=== PATIENT | male | born 1955 | race Caucasian/White ===

== ENCOUNTER 2017-12-03 22:20 | Inpatient (IN) | payer OTHER ==
[~2017-12-03] VITALS: Ht 170.2 cm; Wt 77.3 kg
[2017-12-03] MEDS ORDERED: MORPHINE SULFATE 4 MG/ML CPJ (NOT FOR IM USE) IV STA (22:24)
[2017-12-03] MEDS ORDERED: SODIUM CHLORIDE 0.9% 1,000 ML IV ONE (22:24)
[2017-12-03] MEDS ORDERED: ONDANSETRON HCL 4MG/2ML VIAL IV STA (22:24)
[2017-12-03] MEDS ORDERED: DILTIAZEM HCL 5MG/ML 5ML VIAL IV PRN (22:30)
[2017-12-03] MEDS ORDERED: DILTIAZEM HCL 5MG/ML 5ML VIAL IV ONE ×2 (22:30→22:45)
[2017-12-03] MEDS ORDERED: DILTIAZEM HCL 125 MG in DEXT 5% WATER 100 ML IV ONE (22:30)
[2017-12-03] MEDS ORDERED: ASPIRIN 81MG TABLET PO ONE (22:30)
[2017-12-03] MEDS ORDERED: LORAZEPAM 2MG/ML CPJ IV ONE (22:45)
[2017-12-03 23:23] LABS: BASOPHILS % 0.6 % (0.0-2.0); EOSINOPHILS % 2.1 % (0.0-5.0); HEMATOCRIT. 42.1 % (42.0-52.0); HEMOGLOBIN. 14.3 g/dL (14.0-18.0); LYMPHOCYTES % 20.1 % (20.0-50.0); MEAN CORPUSCULAR HEMOGLOBIN 30.9 pg (28.0-32.0); MEAN CORPUSCULAR VOLUME 90.6 fL (80.0-94.0); MEAN PLATELET VOLUME 8.2 fl (7.4-10.4); NEUTROPHILS % 71.2 % (40.0-76.0); PLATELET 159 x1000/uL (130-400); RED BLOOD CELL COUNT 4.64 mill/uL (4.7-6.1); RED CELL DISTRIBUTION WIDTH 14.2 % (11.6-14.6)
[2017-12-03 23:32] LABS: INR 1.1; PROTHROMBIN TIME 11.1 sec (9.4-11.6)
[2017-12-03 23:41] LABS: CHLORIDE 107 mEq/L (98-107); ETHANOL BLOOD < 10 mg/dL; TROPONIN I 0.04 ng/mL (0.00-0.04)
[2017-12-04] VITALS (7 sets, daily range): BP systolic 116–127; BP diastolic 72–85
[2017-12-04] MEDS ORDERED: DOCUSATE SODIUM 100MG CAPSULE PO PRN
[2017-12-04] MEDS ORDERED: POTASSIUM BICARB/CIT ACID 25 MEQ TABLET.EFF PO NR
[2017-12-04] MEDS ORDERED: GUAIFENESIN 200MG/10ML SUGAR FREE UDC PO PRN
[2017-12-04] MEDS ORDERED: ACETAMINOPHEN 650MG SUPP PR PRN
[2017-12-04] MEDS ORDERED: DIPHENHYDRAMINE 50MG/ML VIAL IV PRN
[2017-12-04] MEDS ORDERED: HYDROCODONE/ACETAMINOPHEN 5/325MG TABLET PO PRN
[2017-12-04] MEDS ORDERED: MAGNESIUM/ALUMINUM HYDROXIDE/SIMETHICONE 30ML UDC PO PRN
[2017-12-04] MEDS ORDERED: AMIODARONE HCL 200 MG TABLET PO SCH
[2017-12-04] MEDS ORDERED: ACETAMINOPHEN 325MG TABLET PO PRN
[2017-12-04] MEDS ORDERED: ACETAMINOPHEN 650MG/20.3ML UDC GT PRN
[2017-12-04] MEDS ORDERED: CLONIDINE 0.1MG TABLET PO PRN
[2017-12-04] MEDS ORDERED: IPRATROPIUM/ALBUTEROL 0.5-3(2.5)MG/3ML NEB INH PRN
[2017-12-04] MEDS ORDERED: ONDANSETRON HCL 4MG/2ML VIAL IV PRN
[2017-12-04] MEDS ORDERED: NA PHOS,M-B/NA PHOS,DI-BA ENEMA 118ML PR PRN
[2017-12-04] MEDS ORDERED: SODIUM CHLORIDE 0.9% 500 ML IV ONE (01:19)
[2017-12-04] MEDS ORDERED: ALBUMIN HUMAN 25GM/100ML (25%) IV NR (02:15)
[2017-12-04] MEDS ORDERED: NOREPINEPHRINE 4 MG in DEXT 5% WATER 246 ML IV ONE ×4 (02:30)
[2017-12-04] MEDS ORDERED: POTASSIUM CHLORIDE 20MEQ TABLET SR PO ONE (02:30)
[2017-12-04 02:35] LABS: BASOPHILS % 0.4 % (0.0-2.0); EOSINOPHILS % 1.4 % (0.0-5.0); HEMATOCRIT. 41.3 % (42.0-52.0); HEMOGLOBIN. 14.2 g/dL (14.0-18.0); MEAN CORPUSCULAR HEMOGLOBIN 31.1 pg (28.0-32.0); MEAN CORPUSCULAR VOLUME 90.6 fL (80.0-94.0); MEAN PLATELET VOLUME 8.5 fl (7.4-10.4); NEUTROPHILS % 72.2 % (40.0-76.0); PLATELET 152 x1000/uL (130-400); RED BLOOD CELL COUNT 4.55 mill/uL (4.7-6.1); RED CELL DISTRIBUTION WIDTH 14.1 % (11.6-14.6)
[2017-12-04 07:35] LABS: BASOPHILS % 0.5 % (0.0-2.0); EOSINOPHILS % 2.5 % (0.0-5.0); HEMOGLOBIN. 12.3 g/dL (14.0-18.0); MEAN CORPUSCULAR HEMOGLOBIN 30.2 pg (28.0-32.0); MEAN CORPUSCULAR VOLUME 90.4 fL (80.0-94.0); MEAN PLATELET VOLUME 8.5 fl (7.4-10.4); MONOCYTES % 7.6 % (2.0-8.0); NEUTROPHILS % 54.4 % (40.0-76.0); PLATELET 143 x1000/uL (130-400); RED BLOOD CELL COUNT 4.09 mill/uL (4.7-6.1); RED CELL DISTRIBUTION WIDTH 14.4 % (11.6-14.6)
[2017-12-04 07:56] LABS: TROPONIN I 0.63 ng/mL (0.00-0.04)
[2017-12-04 07:57] LABS: CHLORIDE 112 mEq/L (98-107); HDL CHOLESTEROL 31 mg/dL (40-59); LDL CHOLESTEROL 96 mg/dL (5-100)
[2017-12-04] MEDS ORDERED: ASPIRIN 81MG TABLET PO SCH (10:45)
[2017-12-04] MEDS ORDERED: REGADENOSON 0.4 MG/5 ML IV ONE (12:15)
[2017-12-04] MEDS: SODIUM CHLORIDE 0.9% INJ 3ML FLUSH IVF SCH ×2 (14:00→21:26)
[2017-12-04] MEDS: BENAZEPRIL 5MG TABLET PO SCH (14:38)
[2017-12-04] MEDS: ASPIRIN 81MG TABLET PO SCH (14:38)
[2017-12-04] MEDS: CITALOPRAM HYDROBROMIDE 40MG TABLET PO SCH (14:39)
[2017-12-04 15:09] LABS: BG BASE EXCESS -2.6 mmol/L (-2.0-2.0); BG CARBOXYHEMOGLOBIN 1.7 % (0.5-1.5); BG DEOXYHEMOGLOBIN 13.6 % (0.0-5.0); BG HCO3 ACT 24.1 mmol/L (22.0-26.0); BG METHEMOGLOBIN 0.3 % (0.0-1.5); BG OXYGEN SATURATION 86.1 % (92.0-98.5); BG OXYHEMOGLOBIN 84.4 % (94.0-97.0); BG PCO2 48.2 mmHg (35.0-45.0); BG PH 7.316 (7.350-7.450); BG PO2 53.2 mmHg (75.0-100.0); BG SAMPLE SITE RIGHT RADIAL; BG TOTAL HEMOGLOBIN 15.8 g/dL (12.0-18.0); BG VENT MODE NASAL CANNULA
[2017-12-04] MEDS ORDERED: FUROSEMIDE 40MG/4ML VIAL IVP NR (15:15)
[2017-12-04 15:39] LABS: CREATINE KINASE MB FRACTION 4.9 ng/mL (0.5-3.6); TROPONIN I 0.28 ng/mL (0.00-0.04)
[2017-12-04] MEDS ORDERED: NICOTINE 21MG PATCH TD NR (18:30)
[2017-12-04] MEDS ORDERED: IOHEXOL-350 100 ML BOTTLE ONE (20:07)
[2017-12-04] MEDS ORDERED: ATORVASTATIN CALCIUM 40MG TABLET PO SCH (21:00)
[2017-12-04] MEDS: ATORVASTATIN CALCIUM 40MG TABLET PO SCH (21:24)
[2017-12-04] MEDS: CARVEDILOL 3.125 MG TABLET PO SCH (21:25)
[2017-12-04 22:57] LABS: CREATINE KINASE MB FRACTION 3.6 ng/mL (0.5-3.6); TROPONIN I 0.28 ng/mL (0.00-0.04)
[2017-12-05] VITALS (11 sets, daily range): BP systolic 111–130; BP diastolic 55–87
[2017-12-05 06:00] LABS: CREATINE KINASE MB FRACTION 3.1 ng/mL (0.5-3.6); TROPONIN I 0.2 ng/mL (0.00-0.04)
[2017-12-05] MEDS: SODIUM CHLORIDE 0.9% INJ 3ML FLUSH IVF SCH ×3 (06:13→21:30)
[2017-12-05 07:22] LABS: CLARITY URINE CLEAR (CLEAR); COLOR URINE YELLOW (YELLOW); KETONES URINE NEGATIVE (NEGATIVE); LEUKOCYTE ESTERASE URINE NEGATIVE (NEGATIVE); NITRITE URINE NEGATIVE (NEGATIVE); OCCULT BLOOD URINE NEGATIVE (NEGATIVE); PH URINE 5.5 (4.5-8.0); PROTEIN URINE NEGATIVE (NEGATIVE); UROBILINOGEN URINE 0.2 E.U./dL (0.2-1.0)
[2017-12-05] MEDS ORDERED: METHYLPREDNISOLONE SOD SUCC 125 MG/2 ML VIAL IV NR (07:30)
[2017-12-05] MEDS ORDERED: REGADENOSON 0.4 MG/5 ML IV ONE (08:16)
[2017-12-05 08:30] LABS: *AMPHETAMINES SCREEN URINE NEGATIVE (NEGATIVE); *BARBITURATES SCREEN URINE NEGATIVE (NEGATIVE); *BENZODIAZEPINES SCREEN URINE NEGATIVE (NEGATIVE); *COCAINE SCREEN URINE NEGATIVE (NEGATIVE); CANNABINOID URINE SCREEN PRESUMTIVE POSITIVE (NEGATIVE); METHADONE URINE SCREEN NEGATIVE (NEGATIVE); OPIATES URINE SCREEN PRESUMTIVE POSITIVE (NEGATIVE); PHENCYCLIDINE URINE SCREEN NEGATIVE (NEGATIVE)
[2017-12-05] MEDS: NICOTINE 21MG PATCH TD SCH (10:05)
[2017-12-05 10:50] LABS: BASOPHILS % 0.5 % (0.0-2.0); HEMATOCRIT. 42.5 % (42.0-52.0); HEMOGLOBIN. 14.3 g/dL (14.0-18.0); LYMPHOCYTES % 9.9 % (20.0-50.0); MEAN CORPUSCULAR HEMOGLOBIN 30.3 pg (28.0-32.0); MONOCYTES % 5.4 % (2.0-8.0); NEUTROPHILS % 83.2 % (40.0-76.0); PLATELET 156 x1000/uL (130-400); RED BLOOD CELL COUNT 4.73 mill/uL (4.7-6.1); RED CELL DISTRIBUTION WIDTH 14.4 % (11.6-14.6)
[2017-12-05 11:19] LABS: CHLORIDE 105 mEq/L (98-107)
[2017-12-05] MEDS: CITALOPRAM HYDROBROMIDE 40MG TABLET PO SCH (11:19)
[2017-12-05] MEDS: ASPIRIN 81MG TABLET PO SCH (11:19)
[2017-12-05] MEDS: CARVEDILOL 3.125 MG TABLET PO SCH ×2 (11:19→21:29)
[2017-12-05] MEDS: BENAZEPRIL 5MG TABLET PO SCH (11:20)
[2017-12-05] MEDS ORDERED: SODIUM CHLORIDE 0.9% 10ML VIAL ONE (14:18)
[2017-12-05] MEDS: IPRATROPIUM BROMIDE (0.02%) 0.5MG/2.5ML NEB HHN SCH ×2 (16:08→20:45)
[2017-12-05] MEDS: ATORVASTATIN CALCIUM 40MG TABLET PO SCH (21:28)
[2017-12-06] VITALS (21 sets, daily range): BP systolic 86–145; BP diastolic 32–85
[2017-12-06] MEDS: IPRATROPIUM BROMIDE (0.02%) 0.5MG/2.5ML NEB HHN SCH ×3 (00:41→20:39)
[2017-12-06] MEDS ORDERED: SODIUM CHLORIDE 0.45% 1,000 ML IV ONE (05:00)
[2017-12-06] MEDS: SODIUM CHLORIDE 0.9% INJ 3ML FLUSH IVF SCH ×3 (05:04→22:05)
[2017-12-06 06:56] LABS: BASOPHILS % 0.3 % (0.0-2.0); EOSINOPHILS % 0.5 % (0.0-5.0); HEMATOCRIT. 41.4 % (42.0-52.0); HEMOGLOBIN. 14.2 g/dL (14.0-18.0); LYMPHOCYTES % 12.3 % (20.0-50.0); MEAN CORPUSCULAR HEMOGLOBIN 30.9 pg (28.0-32.0); MEAN CORPUSCULAR VOLUME 90.1 fL (80.0-94.0); MEAN PLATELET VOLUME 9.4 fl (7.4-10.4); MONOCYTES % 6.1 % (2.0-8.0); NEUTROPHILS % 80.8 % (40.0-76.0); PLATELET 152 x1000/uL (130-400)
[2017-12-06 07:25] LABS: CHLORIDE 106 mEq/L (98-107); CREATINE KINASE 47 IU/L (39-308); CREATINE KINASE MB FRACTION 1.4 ng/mL (0.5-3.6); TROPONIN I 0.09 ng/mL (0.00-0.04)
[2017-12-06] MEDS: NICOTINE 21MG PATCH TD SCH (08:36)
[2017-12-06] MEDS: ASPIRIN 81MG TABLET PO SCH (08:36)
[2017-12-06] MEDS: CARVEDILOL 3.125 MG TABLET PO SCH ×2 (08:37→20:58)
[2017-12-06] MEDS: CITALOPRAM HYDROBROMIDE 40MG TABLET PO SCH (08:37)
[2017-12-06] MEDS: BENAZEPRIL 5MG TABLET PO SCH (08:37)
[2017-12-06] MEDS ORDERED: MIDAZOLAM HCL 2 MG/2 ML VIAL ONE (08:59)
[2017-12-06] MEDS ORDERED: IODIXANOL 320MG/ML 100 ML BOTTLE IV ONE (08:59)
[2017-12-06] MEDS ORDERED: FENTANYL CITRATE/PF 50MCG/ML 2ML VIAL ONE (08:59)
[2017-12-06] MEDS ORDERED: LIDOCAINE HCL 1% 20ML VIAL (Pyxis) INJ ONE (09:00)
[2017-12-06] MEDS ORDERED: ASPIRIN/SOD BICARB/CITRIC ACID 324MG TAB EFF ONE (09:13)
[2017-12-06] MEDS ORDERED: ACETAMINOPHEN 325MG TABLET PO PRN (10:15)
[2017-12-06] MEDS ORDERED: ATROPINE SULFATE 1MG/10ML SYR IV PRN (10:15)
[2017-12-06] MEDS ORDERED: ONDANSETRON HCL 4MG/2ML VIAL IV PRN (10:15)
[2017-12-06] MEDS ORDERED: MORPHINE SULFATE 4 MG/ML CPJ (NOT FOR IM USE) IV PRN (10:30)
[2017-12-06] MEDS ORDERED: SODIUM CHLORIDE 0.45% 500 ML IV ONE ×2 (10:30→11:45)
[2017-12-06] MEDS ORDERED: HEPARIN SODIUM 1,000 UNIT/1ML VIAL IV ONE (11:26)
[2017-12-06] MEDS ORDERED: NICARDIPINE 100MCG/ML 10ML VIAL (CATH LAB) IV ONE (11:26)
[2017-12-06] MEDS ORDERED: NITROGLYCERIN 50MCG/ML 10ML VIAL (CATH LAB) IV ONE (11:26)
[2017-12-06] MEDS: ATORVASTATIN CALCIUM 40MG TABLET PO SCH (20:58)
[2017-12-06] MEDS ORDERED: ASPI-1159 PO (22:34)
[2017-12-06] MEDS ORDERED: CITA40TA11 PO (22:34)
[2017-12-06] MEDS ORDERED: LISI2.5T47 PO (22:34)
[2017-12-06] MEDS ORDERED: CARV3.1242 PO (22:34)
[2017-12-06] MEDS ORDERED: ATOR40TA70 PO (22:34)
[2017-12-07] VITALS (23 sets, daily range): BP systolic 81–156; BP diastolic 27–73
[2017-12-07] MEDS: IPRATROPIUM BROMIDE (0.02%) 0.5MG/2.5ML NEB HHN SCH ×5 (02:01→20:30)
[2017-12-07] MEDS: SODIUM CHLORIDE 0.9% INJ 3ML FLUSH IVF SCH ×3 (06:34→20:42)
[2017-12-07 07:09] LABS: BASOPHILS % 0.4 % (0.0-2.0); EOSINOPHILS % 1.4 % (0.0-5.0); HEMATOCRIT. 42.7 % (42.0-52.0); HEMOGLOBIN. 14.6 g/dL (14.0-18.0); LYMPHOCYTES % 28.6 % (20.0-50.0); MEAN CORPUSCULAR HEMOGLOBIN 30.8 pg (28.0-32.0); MEAN CORPUSCULAR VOLUME 90.3 fL (80.0-94.0); MEAN PLATELET VOLUME 9.2 fl (7.4-10.4); MONOCYTES % 7.5 % (2.0-8.0); NEUTROPHILS % 62.1 % (40.0-76.0); PLATELET 156 x1000/uL (130-400); RED BLOOD CELL COUNT 4.73 mill/uL (4.7-6.1); RED CELL DISTRIBUTION WIDTH 14.2 % (11.6-14.6)
[2017-12-07 07:27] LABS: CHLORIDE 104 mEq/L (98-107)
[2017-12-07] MEDS: CITALOPRAM HYDROBROMIDE 40MG TABLET PO SCH (07:58)
[2017-12-07] MEDS: ASPIRIN 81MG TABLET PO SCH (07:58)
[2017-12-07] MEDS: NICOTINE 21MG PATCH TD SCH (07:58)
[2017-12-07] MEDS: CARVEDILOL 3.125 MG TABLET PO SCH ×2 (07:59→20:42)
[2017-12-07] MEDS: BENAZEPRIL 5MG TABLET PO SCH (07:59)
[2017-12-07] MEDS ORDERED: GENTAMICIN/NS IRRIGATION 500 ML IR ONE (10:15)
[2017-12-07] MEDS ORDERED: GENTAMICIN SULF 40MG/ML 2ML VIAL ONE (10:15)
[2017-12-07] MEDS ORDERED: LIDOCAINE HCL 1% 20ML VIAL (Pyxis) INJ ONE (10:21)
[2017-12-07] MEDS ORDERED: IODIXANOL 320MG/ML 100 ML BOTTLE IV ONE (10:21)
[2017-12-07] MEDS ORDERED: FENTANYL CITRATE/PF 50MCG/ML 2ML VIAL ONE ×2 (10:21→12:21)
[2017-12-07] MEDS ORDERED: MIDAZOLAM HCL 2 MG/2 ML VIAL ONE ×3 (10:21→12:26)
[2017-12-07] MEDS ORDERED: CEFAZOLIN 1000MG PREMIX 100 ML IV ONE (10:48)
[2017-12-07] MEDS ORDERED: DIPHENHYDRAMINE 50MG/ML VIAL ONE (11:43)
[2017-12-07] MEDS ORDERED: SORBITOL 70% SOLN 30ML PO NR (17:45)
[2017-12-07] MEDS ORDERED: VANCOMYCIN 1 G PREMIX 200 ML IV SCH (20:00)
[2017-12-07] MEDS: ATORVASTATIN CALCIUM 40MG TABLET PO SCH (20:41)
[2017-12-08] VITALS (7 sets, daily range): BP systolic 90–128; BP diastolic 46–68
[2017-12-08] MEDS: IPRATROPIUM BROMIDE (0.02%) 0.5MG/2.5ML NEB HHN SCH (01:13)
[2017-12-08] MEDS: SODIUM CHLORIDE 0.9% INJ 3ML FLUSH IVF SCH (06:31)
[2017-12-08 07:00] LABS: BASOPHILS % 0.4 % (0.0-2.0); EOSINOPHILS % 2.7 % (0.0-5.0); HEMATOCRIT. 42.5 % (42.0-52.0); HEMOGLOBIN. 14.2 g/dL (14.0-18.0); LYMPHOCYTES % 17.7 % (20.0-50.0); MEAN CORPUSCULAR HEMOGLOBIN 30.4 pg (28.0-32.0); MEAN CORPUSCULAR VOLUME 90.8 fL (80.0-94.0); MEAN PLATELET VOLUME 9.2 fl (7.4-10.4); MONOCYTES % 7.6 % (2.0-8.0); NEUTROPHILS % 71.6 % (40.0-76.0); PLATELET 145 x1000/uL (130-400); RED BLOOD CELL COUNT 4.68 mill/uL (4.7-6.1); RED CELL DISTRIBUTION WIDTH 14.3 % (11.6-14.6)
[2017-12-08 07:03] LABS: CHLORIDE 101 mEq/L (98-107)
[2017-12-08] MEDS: NICOTINE 21MG PATCH TD SCH (08:32)
[2017-12-08] MEDS: CITALOPRAM HYDROBROMIDE 40MG TABLET PO SCH (08:34)
[2017-12-08] MEDS: ASPIRIN 81MG TABLET PO SCH (08:34)
[2017-12-08] MEDS: CARVEDILOL 3.125 MG TABLET PO SCH (08:41)
[2017-12-08] MEDS: BENAZEPRIL 5MG TABLET PO SCH (08:41)
== END 2017-12-08 09:30 | disposition home or self-care (01) | DRG 280 ==
LOC: ER 22:36 → 3WST 23:09 → UNDOADMIN 23:10 → 3WST 23:10 → EDBEDREQ 23:14 → EDBEDREQSVC 23:58 → ENRESERV 12-04 07:49 → 3WST 12-06 11:03
PROVIDERS: ADMIT Family Medicine; ATTEND Family Medicine
PROC: 4A023N7 Measurement of Cardiac Sampling and Pressure, Left Heart, Percutaneous Approach (ICD-10-PCS; principal; 2017-12-06)
PROC: 5A2204Z Restoration of Cardiac Rhythm, Single (ICD-10-PCS; 2017-12-06)
PROC: B2111ZZ Fluoroscopy of Multiple Coronary Arteries using Low Osmolar Contrast (ICD-10-PCS; 2017-12-06)
PROC: B2131ZZ Fluoroscopy of Multiple Coronary Artery Bypass Grafts using Low Osmolar Contrast (ICD-10-PCS; 2017-12-06)
PROC: B2151ZZ Fluoroscopy of Left Heart using Low Osmolar Contrast (ICD-10-PCS; 2017-12-06)
PROC: B2181ZZ Fluoroscopy of Left Internal Mammary Bypass Graft using Low Osmolar Contrast (ICD-10-PCS; 2017-12-06)
PROC: B5171ZZ Fluoroscopy of Left Subclavian Vein using Low Osmolar Contrast (ICD-10-PCS; 2017-12-08)
DX: I21.4 Non-ST elevation (NSTEMI) myocardial infarction (principal); I50.43 Acute on chronic combined systolic (congestive) and diastolic (congestive) heart failure; I49.01 Ventricular fibrillation; I95.9 Hypotension, unspecified; E11.9 Type 2 diabetes mellitus without complications; I11.0 Hypertensive heart disease with heart failure; Z95.1 Presence of aortocoronary bypass graft; I47.1 Supraventricular tachycardia; D64.9 Anemia, unspecified; I47.2 Ventricular tachycardia; J43.9 Emphysema, unspecified; B19.20 Unspecified viral hepatitis C without hepatic coma; I25.5 Ischemic cardiomyopathy; I25.10 Atherosclerotic heart disease of native coronary artery without angina pectoris; E78.00 Pure hypercholesterolemia, unspecified; N20.0 Calculus of kidney; E78.5 Hyperlipidemia, unspecified; E87.6 Hypokalemia; F17.210 Nicotine dependence, cigarettes, uncomplicated; F12.90 Cannabis use, unspecified, uncomplicated; F14.10 Cocaine abuse, uncomplicated; J32.9 Chronic sinusitis, unspecified; F41.9 Anxiety disorder, unspecified; I34.0 Nonrheumatic mitral (valve) insufficiency; I49.3 Ventricular premature depolarization; Z85.118 Personal history of other malignant neoplasm of bronchus and lung; I25.2 Old myocardial infarction; Z79.82 Long term (current) use of aspirin; Z79.899 Other long term (current) drug therapy; Z82.49 Family history of ischemic heart disease and other diseases of the circulatory system; Z88.0 Allergy status to penicillin; Z90.2 Acquired absence of lung [part of]; Z95.810 Presence of automatic (implantable) cardiac defibrillator
CPT/HCPCS: 33216; 36415; 36600; 71045; 71275; 75820; 78452; 80048; 80053; 80061; 80305; 81003; 82375; 82550; 82553; 82805; 82962; 83605; 83735; 83880; 84443; 84484; 85025; 85379; 85610; 93005; 93017; 93306; 93459; 93641; 93970; 94664; 96361; 96374; 96375; 99291; A4216; A9500; C1722; C1760; C1769; C1892; C1893; C1899; G0482; J0690; J1200; J1580; J1644; J1940; J2060; J2250; J2270; J2405; J2785; J2930; J3010; J3370; J3490; J7030; J7040; J7060; J7620; P9047; Q9967